=== PATIENT | female | born 1945 | race Caucasian/White ===

== ENCOUNTER 2021-06-24 11:03 | Emergency (ER) | payer MEDICARE, OTHER ==
[~2021-06-24] VITALS: Ht 165.1 cm; Wt 83.9 kg
[2021-06-24] MEDS ORDERED: METOPROLOL SUCC25 MG PO (12:08)
[2021-06-24] MEDS ORDERED: PRAVASTATIN SOD20 MG PO (12:08)
[2021-06-24] MEDS ORDERED: CARBAMAZEPINE400 MG PO (12:09)
[2021-06-24] MEDS ORDERED: LISINOPRIL-HCT1 EACH PO (12:09)
[2021-06-24] MEDS ORDERED: MOBIC15 MG PO (12:10)
[2021-06-24] MEDS ORDERED: ASPIRIN81 MG PO (12:10)
[2021-06-24] MEDS ORDERED: LYRICA150 MG PO (12:10)
[2021-06-24] MEDS ORDERED: LAMOTRIGINE25 MG PO (12:10)
--- NOTE | 2021-06-24 20:11 | EKG ---
[facility] [address] [facility] [place], [place] [address] Signed Normal sinus rhythm Inferior infarct , age undetermined Abnormal ECG No previous ECGs available Confirmed by KOBY FERREIRA DO ([id number]) on 06/24/2021 8:11:28 PM Electronically Signed By: KOBY FERREIRA DO 06/24/212010 PATIENT NAME: CARMELITA KAMARA Electrocardiogram DATE OF : 45 PHYSICIAN: KOBY FERREIRA DO REPORT #: [id number] REPORT IS CONFIDENTIAL AND NOT TO BE RELEASED WITHOUT AUTHORIZATION
== END 2021-06-24 14:30 | disposition home or self-care (01) ==
LOC: ED 11:03
DX: D72.829 Elevated white blood cell count, unspecified (principal); Z79.82 Long term (current) use of aspirin; Z79.899 Other long term (current) drug therapy
CPT/HCPCS: 71045; 80053; 81001; 83735; 85007; 85025; 93005; 93010; 99285-25